=== PATIENT | female | born 1945 | race Caucasian/White ===

== ENCOUNTER 2023-03-26 07:45 | Day surgery (SDC) | payer MEDICARE ==
[~2023-03-26] VITALS: Ht 157.5 cm; Wt 96.1 kg
[2023-03-26] MEDS ORDERED: normal saline 1000ml 1,000 ML IV PRN (08:15)
[2023-03-26] MEDS ORDERED: LISI1TAB51 PO (08:17)
[2023-03-26] MEDS ORDERED: LORA10CA PO (08:18)
[2023-03-26] MEDS ORDERED: MELO-102 PO (08:18)
[2023-03-26] MEDS ORDERED: CHOL10008 PO (08:19)
[2023-03-26 08:30] VITALS: BP 137/84; PULSE 84; RESP 16; TEMP 98.3; O2SAT 95
[2023-03-26 09:00] VITALS: RESP 16; O2SAT 95
[2023-03-26] MEDS ORDERED: midazolam 1 mg/ML 2ml injection ONE (09:36)
[2023-03-26] MEDS ORDERED: fentaNYL/PF 50MCG/1 ML 2ML syringe ONE (09:36)
[2023-03-26] MEDS ORDERED: heparin sodium, porcine/PF 100unit/ml 5ML syringe ONE (09:37)
[2023-03-26] MEDS ORDERED: LIDOcaine 1% 30ml preserv. free vial ONE (09:37)
[2023-03-26 10:46] VITALS: BP 129/60; PULSE 77; RESP 16; O2SAT 95
[2023-03-26 11:01] VITALS: BP 129/61; PULSE 76; RESP 14; O2SAT 95
[2023-03-26 11:31] VITALS: BP 130/60; PULSE 75; RESP 14; O2SAT 97
[2023-03-26 11:46] VITALS: BP 128/62; PULSE 77; RESP 14; O2SAT 96
== END 2023-03-26 11:50 | disposition home or self-care (01) ==
LOC: SSTAY O 07:45 → EDBD 07:45 → SSTAY O 11:50
PROVIDERS: ATTEND Radiology Vascular & Interventional Radiology
DX: C50.212 Malignant neoplasm of upper-inner quadrant of left female breast (principal); I10 Essential (primary) hypertension; M19.90 Unspecified osteoarthritis, unspecified site; Z79.899 Other long term (current) drug therapy; Z98.890 Other specified postprocedural states; Z87.891 Personal history of nicotine dependence; Z72.89 Other problems related to lifestyle
CPT/HCPCS: 36561; 76937; 77001; 99152; 99153; C1788; J1642; J2250; J3010; J3490; J7030; A4620; C1894